=== PATIENT | male | born 1950 | race Caucasian/White ===

== ENCOUNTER 2019-10-27 09:28 | Outpatient (CLI) | payer OTHER, SELFPAY ==
--- NOTE | ~2019-10-27 | CT_ITS ---
EXAMINATION: CT chest high resolution wo wi DATE: 10/27/2019 11:19 INDICATION: Interstitial pulmonary disease. TECHNIQUE: Computed tomography (CT) of the chest was performed without intravenous contrast. The dose -length product was 235.80 mGy-cm. Automated exposure control and iterative reconstruction technique were employed. COMPARISON: CT dated 03/17/2019 FINDINGS: There are calcified hilar lymph nodes, consistent with chronic granulomatous disease. No si gnificant pleural or pericardial effusion. Heart size is normal. Spleen is enlarged. There is nodular appearance to the liver surface, suspicious for cirrhosis. There are multiple collateral vessels in the left upper abdomen, suspicious for portal hypertension. There is mild peripheral reticular opacification with slight progression, consistent with a pattern o f usual interstitial pneumonia. The 4 mm nodule in the left upper lobe is unchanged from prior examin ation, likely benign. There is coronary atherosclerosis. No new pulmonary nodules or masses. IMPRESSION: 1. Possible mild progression of chronic interstitial lung disease with pattern consistent with usual interstitial pneumonia. 2: Questionable nodularity to the liver surface, suspicious for cirrhosis with possible portal hyper tension. Consider correlation with ultrasound. Reviewed, dictated and finalized at location A. IMPRESSION: 1. Possible mild progression of chronic interstitial lung disease with pattern consistent with usual interstitial pneumonia. 2: Questionable nodularity to the liver surface, suspicious for cirrhosis with possible portal hypertension. Consider correlation with ultrasound.
--- NOTE | 2019-10-27 20:31 | WPDSIXMINUTE ---
Six Minute Walk Six Minute Walk: DOS: 10/27/2019 REQUESTING: Dr Grimes REASON FOR TESTING: ILD, shortness of breath SIX MINUTE WALK This test was conducted per ATS guidelines. Initial saturation was 96%, pulse was 68. The test was conducted on room air. Saturation ranged from 94% to 97%. Heart rate ranged from 64 to 90. The ending pulse was 64. Distance walked was 1300 feet / 396 meters which was completed without stopping to rest. IMPRESSION: Normal walk study without desaturation. Distance walked is adequate for age. No supplemental oxygen is indicated. Alisa Grimes MD
--- NOTE | 2019-10-27 20:37 | WPDPFTINT ---
PFT Interpretation PFT Interpretation: DOS: 10/27/2019 REQUESTING: Dr Grimes REASON FOR TESTING: ILD, shortness of breath PULMONARY FUNCTION TESTS Results are reliable and reproducible. Spirometry: FEV1 is 117%, 4.06 liters, normal. FVC 113%. FEV1% is 70%, normal. No significant change with bronchodilator. Lung volumes: TLC 102%, normal. Rv 72%. No air trapping. Airway resistance is elevated 289%. Diffusion: DLCO [113%, normal. Flow volume loop: Flow limitation and flattening of the inspiratory limb which was consistent on 3 efforts. IMPRESSION: Normal spirometry, lung volumes and DLCO. Increase in airway resistance. The main abnormal finding is the flattening of the inspiratory limb which is consistent with dynamic or variable extrathoracic obstruction. This may represent vocal fold paralysis, a mobile tumor, extrathoracic tracheomalacia, or polychondritis. Alisa Grimes MD
== END 2019-10-27 09:29 | disposition home or self-care (01) ==
PROVIDERS: PCP Family Medicine; Visit Provider Internal Medicine Critical Care Medicine
DX: R06.02 Shortness of breath (principal); J84.9 Interstitial pulmonary disease, unspecified; R91.8 Other nonspecific abnormal finding of lung field
CPT/HCPCS: 71250; 94060; 94618; 94726; 94729

== ENCOUNTER 2021-05-29 07:50 | Outpatient (CLI) | payer OTHER, SELFPAY ==
--- NOTE | 2021-05-29 | ECHO_ITS ---
Patient Info Name: Shan Saldaña Age: 70 years : 1950 Gender: Male Ht: 76 in Wt: 212 lbs BSA: 2.28 m2 HR: 72 bpm BP: 152 / 95 mmHg Technical Quality: Good Exam Date: 05/29/2021 8:45 AM Exam Location: [facility] Patient Status: Outpatient Admit Date: 05/29/2021 Staff Ordering Physician: Alisa Grimes MD Building Official: David Cagle RDCS, RT Attending Provider: Alisa Grimes MD Referring Physician: Cornelio MOTLEY; Exam Type: CA echo doppler color flow Study Info Indications R06.02 - Shortness of breath Complete two-dimensional, color flow and Doppler transthoracic echocardiogram is performed. Strain analysis performed. Summary 1. Complete two-dimensional, color flow and Doppler transthoracic echocardiogram is performed. 2. Left ventricular chamber dimension is normal. 3. Left ventricular systolic function is normal, estimated at 60-65%. 4. The left ventricular diastolic function is normal. 5. E/e' 6 is not elevated. 6. Global longitudinal strain is normal at -20.5%. 7. There is trace aortic valve regurgitation. 8. There is mild tricuspid valve regurgitation. 9. No pulmonary hypertension, estimated pulmonary arterial systolic pressure is 38 mmHg. 10. Dilated inferior vena cava with >50% collapse upon inspiration consistent with elevated right atrial pressure, 10 mmHg. Left Ventricle E/e' 6 is not elevated. Global longitudinal strain is normal at -20.5%. Left ventricular chamber dimension is normal. Left ventricular systolic function is normal, estimated at 60-65%. The left ventricular diastolic function is normal. Right Ventricle Right ventricular systolic function is normal and with normal TAPSE 2.7 cm. Right ventricular chamber dimension is normal. Left Atria Left atrial chamber dimension is normal. Right Atria Right atrial chamber dimension is normal. Aortic Valve The aortic valve is trileaflet. There is no aortic valve stenosis. There is trace aortic valve regurgitation. Pulmonic Valve There is no pulmonic regurgitation. Mitral Valve There is no mitral valve stenosis. There is no mitral valve regurgitation. Tricuspid Valve There is mild tricuspid valve regurgitation. No pulmonary hypertension, estimated pulmonary arterial systolic pressure is 38 mmHg. Pericardium/Pleural There is no pericardial effusion. Inferior Vena Cava Dilated inferior vena cava with >50% collapse upon inspiration consistent with elevated right atrial pressure, 10 mmHg. Aorta The aortic root size at the sinus of Valsalva is normal. Left Ventricular Outflow Tract Name Value Normal LVOT 2D LVOT Diameter 2.1 cm LVOT Doppler LVOT Peak Gradient 4 mmHg LVOT Mean Gradient 2 mmHg LVOT VTI 20 cm LVOT VTI/AV VTI Ratio 0.7 LVOT Stroke Volume 67 ml LVOT CO 4.9 l/min LVOT CI 2.2 l/min/m2 Mitral Valve
--- NOTE | ~2021-05-29 | CT_ITS ---
EXAMINATION: CT chest high resolution wo md DATE: 05/29/2021 10:38 INDICATION: Interstitial pulmonary disease TECHNIQUE: Computed tomography (CT) of the chest was performed without intravenous contrast. The dose -length product (DLP) was 223.37 mGy-cm. Automated exposure control and iterative reconstruction tech nique were employed. COMPARISON: 10/27/2019, 03/17/2019 FINDINGS: There are chronic subpleural groundglass and reticular opacities without significant change . There is no pleural effusion or pneumothorax. The lungs are free of focal airspace opacities. No ho neycombing is identified. No pathologically enlarged thoracic lymph nodes are identified. The heart s ize is normal. Calcified coronary artery atherosclerosis is noted. There is nodularity of the liver s urface. Multiple collateral vessels are noted in the visualized upper abdomen. IMPRESSION: 1. Stable chronic interstitial lung disease, consistent with nonspecific interstitial pneumonia (NSIP ) versus usual interstitial pneumonia (UIP). Reviewed, dictated and finalized at location A. T RECEIVER IMPRESSION: 1. Stable chronic interstitial lung disease, consistent with nonspecific inters titial pneumonia (NSIP) versus usual interstitial pneumonia (UIP).
--- NOTE | 2021-05-29 14:05 | WPDPFTINT ---
PFT Procedure Performed PFT Procedure Performed Plethysmography (Lung Vol) Diffusing Cap (DLCO) Flow Vol Loop Spirometry w/o Bronchodil PFT Interpretation Lung volumes were measured with the body plethysmography method. Lung volumes are unremarkable. Spirometry showed normal expiratory flow rates and a normal FEV1 to FVC ratio of 77%. No post bronchodilator study carried out. Lung diffusion capacity is within the normal range at 94% predicted. The flow volume loop is unremarkable. In comparison to previous study done in October of 2019, FVC, FEV1, TLC and lung diffusion capacity are all essentially unchanged. Impression: Spirometry, lung volumes, and lung diffusion capacity all within the normal range.
--- NOTE | 2021-05-29 14:09 | WPDSIXMINUTE ---
Six Minute Walk Procedure Procedure Performed Pulmonary Stress Test (6 min walk) Six Minute Walk This 6 minutes walk test was carried out with the patient breathing ambient air. The pre walk oxyhemoglobin saturation was 95%. The patient was able to walk over 487 m with no stops during testing. During the walk the oxyhemoglobin saturation remained over 93%. Impression: No evidence of oxyhemoglobin desaturation on this testing.
== END 2021-05-29 07:51 | disposition home or self-care (01) ==
PROVIDERS: PCP Family Medicine; Visit Provider Internal Medicine Critical Care Medicine
DX: J84.9 Interstitial pulmonary disease, unspecified (principal); I36.1 Nonrheumatic tricuspid (valve) insufficiency
CPT/HCPCS: 71250; 93306; 94060; 94618; 94726; 94729